=== PATIENT | female | born 1995 | race Caucasian/White ===

== ENCOUNTER 2017-08-30 15:10 | Emergency (ER) | payer BC ==
[2017-08-30 15:27] VITALS: BP 104/52
--- NOTE | 2017-08-30 15:37 | UC ---
Throat Pain/Nasal Fred HPI - HPI Summary HPI Summary: 21F presents with sore throat today. She states she has had cold like symptoms for past couple days. denies any fever. has history of strept. no history of mono. no fatigue, abdominal pain, n/v. hurts to swallow. no chest pain or SOB. has nasal congestion. no ear pain. took tyenlol for pain. - History of Current Complaint Chief Complaint: UCGeneralIllness Stated Complaint: SORE THROAT Time Seen by Provider: 08/30/17 15:29 Hx Last Menstrual Period: 08/30/17 - Allergies/Home Medications Allergies/Adverse Reactions: Allergies Allergy/AdvReac Type Severity Reaction Status Date / Time No Known Allergies Allergy Verified 08/30/17 15:23 Home Medications: Home Medications NK [No Home Medications Reported] 08/30/17 [History Confirmed 08/30/17] PMH/Surg Hx/FS Hx/Imm Hx - Surgical History Surgical History: None - Social History Alcohol Use: None Substance Use Type: None Smoking Status (MU): Never Smoked Tobacco Physical Exam Vital Signs: Initial Vital Signs Temp 99.5 F 08/30/17 15:24 Pulse 80 08/30/17 15:24 Resp 16 08/30/17 15:24 BP 104/52 08/30/17 15:24 Pulse Ox 98 08/30/17 15:24 Throat Pain/Nasal Course/Dx - Course Course Of Treatment: 21F presents with sore throat today. She states she has had cold like symptoms for past couple days. denies any fever. has history of strept. no history of mono. no fatigue, abdominal pain, n/v. hurts to swallow. no chest pain or SOB. has nasal congestion. no ear pain. took tyenlol for pain. tonsils+2m, uvula midline, soft palate symmetric.
--- NOTE | 2017-08-30 15:41 | UC ---
Throat Pain/Nasal Fred HPI - HPI Summary HPI Summary: 21F presents with sore throat today. She states she has had cold like symptoms for past couple days. denies any fever. has history of strept. no history of mono. no fatigue, abdominal pain, n/v. hurts to swallow. no chest pain or SOB. has nasal congestion. no ear pain. took tyenlol for pain. has dry cough. - History of Current Complaint Chief Complaint: UCGeneralIllness Stated Complaint: SORE THROAT Time Seen by Provider: 08/30/17 15:29 Hx Last Menstrual Period: 08/30/17 - Allergies/Home Medications Allergies/Adverse Reactions: Allergies Allergy/AdvReac Type Severity Reaction Status Date / Time No Known Allergies Allergy Verified 08/30/17 15:23 PMH/Surg Hx/FS Hx/Imm Hx Endocrine History: Other Other Endocrine History: no DM Cardiovascular History: Other Other Cardiovascular History: no HTN - Surgical History Surgical History: None - Family History Known Family History: Negative: Respiratory Disease - Social History Alcohol Use: None Substance Use Type: None Smoking Status (MU): Never Smoked Tobacco Review of Systems Constitutional: Negative ENT: Sore Throat Respiratory: Cough All Other Systems Reviewed And Are Negative: Yes Physical Exam Triage Information Reviewed: Yes Vital Signs: Initial Vital Signs Temp 99.5 F 08/30/17 15:24 Pulse 80 08/30/17 15:24 Resp 16 08/30/17 15:24 BP 104/52 08/30/17 15:24 Pulse Ox 98 08/30/17 15:24 Vital Signs Reviewed: Yes Eyes: Positive: Conjunctiva Clear ENT: Positive: Pharyngeal erythema, Tonsillar swelling, Tonsillar exudate, Other : - uvula midline, soft palate symmetric. Negative: Trismus, Muffled/hoarse voice Respiratory: Positive: Lungs clear Cardiovascular: Positive: RRR Musculoskeletal Exam: Normal Neurological: Positive: Alert Skin Exam: Normal Throat Pain/Nasal Course/Dx - Course Course Of Treatment: 21F presents with sore throat today. She states she has had cold like symptoms for past couple days. denies any fever. has history of strept. no history of mono. no fatigue, abdominal pain, n/v. hurts to swallow. no chest pain or SOB. has nasal congestion. no ear pain. took tyenlol for pain. has dry cough. uvula midline, soft palate symmetric, tonsils +2. strept pos will treat with prednisone and amoxicillin, patient understands and agrees with plan. - Differential Dx/Diagnosis Differential Diagnosis/HQI/PQRI: Pharyngitis, Tonsillitis, URI Provider Diagnoses: strept throat Discharge - Discharge Plan Condition: Good Disposition: HOME Prescriptions: Amoxicillin PO (*) [Amoxicillin 500 MG CAP*] 500 mg PO BID #20 cap Dexamethasone TAB* [Decadron TAB*] 4 mg PO DAILY #5 tab Patient Education Materials: Strep Throat (ED) Referrals: Non Staff,Doctor [Primary Care Provider] - Additional Instructions: Take antibiotic twice a day for 10 days Take steroid once a day for 5 days Take Tylenol or ibuprofen for pain/fever every 6 hours Can gargle salt water, use cough drops or products such as cloraseptic spray for pain Return to ED if develop difficulty breathing or unable to manage secretions, any new or worsening symptoms
== END 2017-08-30 15:48 | disposition home or self-care (01) ==
LOC: UCCORT 15:10
DX: J02.0 Streptococcal pharyngitis (principal)
CPT/HCPCS: 87651; 99202; G0463

== ENCOUNTER 2020-01-19 11:37 | Emergency (ER) | payer BC ==
[2020-01-19 11:50] VITALS: BP 111/69
--- NOTE | 2020-01-19 12:22 | UC ---
Knee Pain HPI - HPI Summary HPI Summary: right knee pain x 1 week pain is 8 out 10 , worse with walking, better with rest s/p fall on her right knee / patella one week ago during cheeleading practice + swelling/ fluid in the joint - History of Current Complaint Chief Complaint: UCLowerExtremity Stated Complaint: RIGHT KNEE INJURY Time Seen by Provider: 01/19/20 12:00 Hx Obtained From: Patient Hx Last Menstrual Period: 01/01/2020 ?: No Onset/Duration: Sudden Onset, Lasting Weeks - 1, Still Present Severity Initially: Moderate Severity Currently: Moderate Pain Intensity: 8 Character: Dull, Aching Aggravating Factor(s): Movement, Weight Bearing, Prolonged Standing, Stairs Alleviating Factor(s): Rest, Cold Associated Signs And Symptoms: Positive: Swelling, Weakness. Negative: Redness , Bruising, Fever, Numbness, Tingling Able to Bear Weight: Yes - Allergies/Home Medications Allergies/Adverse Reactions: Allergies Allergy/AdvReac Type Severity Reaction Status Date / Time No Known Allergies Allergy Verified 01/19/20 11:46 Home Medications: Home Medications Norethindrone/Eth Est .04/30NF [Junel (NF)] 1 tab PO DAILY 01/19/20 [ History Confirmed 01/19/20] PMH/Surg Hx/FS Hx/Imm Hx Previously Healthy: Yes - Surgical History Surgical History: None - Family History Known Family History: Negative: Respiratory Disease - Social History Alcohol Use: Occasionally Substance Use Type: None Smoking Status (MU): Never Smoked Tobacco Review of Systems All Other Systems Reviewed And Are Negative: Yes Constitutional: Positive: Negative Skin: Positive: Negative Eyes: Positive: Negative Is Patient Immunocompromised?: No Physical Exam Triage Information Reviewed: Yes Appearance: Well-Appearing, No Pain Distress, Well-Nourished Vital Signs: Initial Vital Signs Temp 98.5 F 01/19/20 11:47 Pulse 78 01/19/20 11:47 Resp 14 01/19/20 11:47 BP 111/69 01/19/20 11:47 Pulse Ox 100 01/19/20 11:47 Vital Signs Reviewed: Yes Eye Exam: Normal Eyes: Positive: Conjunctiva Clear ENT: Positive: Normal ENT inspection, Hearing grossly normal, Pharynx normal Neck exam: Normal Respiratory: Positive: Chest non-tender, Lungs clear, Normal breath sounds Cardiovascular: Positive: RRR, No Murmur, Pulses Normal Musculoskeletal: Positive: Other: - right knee : mild swelling, mild effusion , patella tenderness, limited ROM on flexion and extension , ligaments are stable Diagnostics - Radiology No standard instances Radiology Interpretation Completed By: Radiologist Summary of Radiographic Findings: xray report right knee: FINDINGS: The bones are in normal alignment. No joint effusion or fracture is seen. Joint spaces appear maintained. IMPRESSION: NO EVIDENCE FOR FRACTURE. Knee Pain Course/Dx - Differential Dx/Diagnosis Provider Diagnosis: Contusion, knee Discharge ED - Sign-Out/Discharge Documenting (check all that apply): Patient Departure All imaging exams completed and their final reports reviewed: Yes - Discharge Plan Condition: Stable Disposition: HOME Patient Education Materials: Knee Pain (ED) Referrals: No Primary Care Phys,NOPCP [Primary Care Provider] - Joseph Jacobsen MD [Medical Doctor] - As Soon As Possible Additional Instructions: normal right knee xray contusion of the knee cont. with rest, ice, elevation referral to [place] for evaluation - Billing Disposition and Condition Condition: STABLE Disposition: Home
== END 2020-01-19 12:55 | disposition home or self-care (01) ==
LOC: UCCORT 11:37
DX: S80.01XA Contusion of right knee, initial encounter (principal); W18.30XA Fall on same level, unspecified, initial encounter; Y92.9 Unspecified place or not applicable
CPT/HCPCS: 99211; G0463